=== PATIENT | male | born 1990 ===

== ENCOUNTER 2022-07-30 16:49 | Emergency (ER) | payer SELFPAY ==
[2022-07-30 17:53] LABS: BASOPHILS ABSOLUTE AUTO 0.11 K/uL (0.00-0.10); BASOPHILS PERCENT AUTO 1.1 % (0.1-1.3); EOSINOPHILS ABSOLUTE AUTO 0.82 K/uL (0.00-0.40); EOSINOPHILS PERCENT AUTO 8.4 % (0.0-5.4); HEMATOCRIT 41.9 % (38.4-49.7); HEMOGLOBIN 15.1 g/dL (12.9-16.9); IMMATURE GRAN PERCENT AUTO 0.2 % (0.0-0.7); LYMPHOCYTES ABSOLUTE AUTO 2.56 K/uL (0.8-3.3); LYMPHOCYTES PERCENT AUTO 26.3 % (11.4-47.7); MEAN CORPUSCULAR HEMOGLOBIN 31.1 pg (31.6-35.5); MEAN CORPUSCULAR VOLUME 86.4 fL (81.4-99.0); MONOCYTES ABSOLUTE AUTO 0.87 K/uL (0.20-0.90); MONOCYTES PERCENT AUTO 8.9 % (3.3-12.6); NEUTROPHILS ABSOLUTE AUTO 5.36 K/uL (1.0-7.6); NEUTROPHILS PERCENT AUTO 55.1 % (40.0-78.1); PLATELET COUNT,PLT 326 K/uL (130-375); RED BLOOD CELL COUNT 4.85 M/uL (4.14-5.76); WHITE BLOOD CELL COUNT,WBC 9.7 K/uL (3.2-11.0)
[2022-07-30 17:54] LABS: IMMATURE GRAN ABSOLUTE AUTO 0.02 K/uL (0.00-0.23)
[2022-07-30 18:14] LABS: A/G RATIO 1.1 (1.2-2.2); ALANINE AMINOTRANSFERASE,ALT 57 U/L (12-78); ALBUMIN 4.4 g/dL (3.4-5.0); ALKALINE PHOSPHATASE 73 U/L (46-116); ASPARTATE AMNIOTRANSFERASE,AST 35 U/L (15-37); BILIRUBIN TOTAL 0.3 mg/dL (0.2-1.0); BLOOD UREA NITROGEN,BUN 9 mg/dL (7-18); CALCIUM 9.2 mg/dL (8.5-10.1); CARBON DIOXIDE,CO2 21 mmol/L (21-32); CHLORIDE,CL 106 mmol/L (100-108); CREATININE 0.9 mg/dL (0.8-1.3); EST CRCL DRUG DOSING (CG) 121.67 mL/min; ESTIMATED GFR 116 mL/min (>60); GLUCOSE RANDOM 111 mg/dL (74-106); POTASSIUM,K 3.8 mmol/L (3.6-5.2); PROTEIN TOTAL,TP 8.3 g/dL (6.4-8.2); SODIUM,NA 144 mmol/L (140-148)
[2022-07-30 18:43] LABS: AMPHETAMINES SCREEN, URINE NEGATIVE (NEGATIVE); BARBITURATE SCREEN,URINE NEGATIVE (NEGATIVE); BENZODIAZEPINES SCREEN,URINE NEGATIVE (NEGATIVE); METHADONE SCREEN, URINE NEGATIVE (NEGATIVE); METHAMPHETAMINES SCREEN, URINE NEGATIVE (NEGATIVE); OXYCODONE SCREEN,URINE NEGATIVE (NEGATIVE); PROPOXYPHENE SCREEN,URINE NEGATIVE (NEGATIVE); THC SCREEN,URINE 50 NG/ML NEGATIVE (NEGATIVE)
[2022-07-30] MEDS ORDERED: Nicotine 14 MG/24 Hr Patch TRDERM ONE (23:41)
== END 2022-07-31 13:55 | disposition other institution (70) ==
LOC: JP.ED 16:49
DX: F32.A Depression, unspecified (principal); R45.851 Suicidal ideations; Z86.16 Personal history of COVID-19; Z72.0 Tobacco use; Z20.822 Contact with and (suspected) exposure to COVID-19
CPT/HCPCS: 36415; 80053; 80305; 80307; 85025; 87635; 99285; A9270; U0002